=== PATIENT | female | born 1965 | race Caucasian/White ===

== ENCOUNTER 2017-09-20 11:03 | Inpatient (IN) | payer OTHER ==
[~2017-09-20] VITALS: Ht 170.2 cm; Wt 70.3 kg
[~2017-09-20 11:03] MED LIST: CIPRO500 MG PO; CODE1TAB37 PO; FLAGYL500MG PO; FLOVENT HFA10.6 GM; NEXIUM5 MG; PERCOCET 5-3251 EACH PO; PROVENT NS; Pepcid 40MG TAB PO; QVAR7.3 G1 IH; SINGULAIR10 MG PO; ZANTAC150 M3 PO; ZANTAC300 MG PO; [UNRECOGNIZED DRUG - OTHER] PO
== END 2017-09-27 18:01 | disposition home or self-care (01) | DRG 391 ==
LOC: ER 11:03 → MEDJ 22:18
PROC: BW25YZZ Computerized Tomography (CT Scan) of Chest, Abdomen and Pelvis using Other Contrast (ICD-10-PCS; 2017-09-20)
PROC: 3E0F7GC Introduction of Other Therapeutic Substance into Respiratory Tract, Via Natural or Artificial Opening (ICD-10-PCS; principal; 2017-09-21)
PROC: 3E0336Z Introduction of Nutritional Substance into Peripheral Vein, Percutaneous Approach (ICD-10-PCS; 2017-09-22)
PROC: BW24YZZ Computerized Tomography (CT Scan) of Chest and Abdomen using Other Contrast (ICD-10-PCS; 2017-09-24)
DX: K57.20 Diverticulitis of large intestine with perforation and abscess without bleeding (principal); A41.9 Sepsis, unspecified organism; J45.998 Other asthma; M32.8 Other forms of systemic lupus erythematosus

== ENCOUNTER 2017-11-19 06:11 | Day surgery (SDC) | payer OTHER | END 2017-11-19 09:22 | disposition home or self-care (01) | LOC: AMB-ENDOS 06:11 | DX: K57.30 Diverticulosis of large intestine without perforation or abscess without bleeding (principal) ==

== ENCOUNTER 2017-12-07 09:30 | Inpatient (IN) | payer OTHER ==
[~2017-12-07] VITALS: Ht 170.2 cm; Wt 70.3 kg
[2017-12-07] MEDS ORDERED: PROTONIX40 M1 PO (11:10)
[2017-12-07] MEDS ORDERED: PRO PO (11:11)
[2017-12-14] MEDS ORDERED: PROTONIX40 MG PO (08:57)
[2017-12-14] MEDS ORDERED: INTESTINEX680 M1 PO (08:57)
[2017-12-14] MEDS ORDERED: TYLENOL ARTHRI650 MG PO (08:57)
== END 2017-12-14 10:43 | disposition home or self-care (01) | DRG 330 ==
LOC: SURH 12-11 06:10 → O/R 12-11 06:10 → SURH 12-11 09:30
PROVIDERS: Surgery
PROC: 0DTE4ZZ Resection of Large Intestine, Percutaneous Endoscopic Approach (ICD-10-PCS; principal; 2017-12-11 14:15)
DX: K57.20 Diverticulitis of large intestine with perforation and abscess without bleeding (principal)

== ENCOUNTER 2019-02-03 05:45 | Day surgery (SDC) | payer OTHER ==
[~2019-02-03 05:45] MED LIST changes: +INTESTINEX680 M1 PO; +PRO PO; +PROTONIX40 M1 PO; +PROTONIX40 MG PO; +TYLENOL ARTHRI650 MG PO
== END 2019-02-03 09:20 | disposition home health service (06) ==
LOC: AMB-ENDOS 05:45
DX: K57.32 Diverticulitis of large intestine without perforation or abscess without bleeding (principal); K57.30 Diverticulosis of large intestine without perforation or abscess without bleeding

== ENCOUNTER 2021-06-30 18:51 | Emergency (ER) | payer OTHER ==
[~2021-06-30] VITALS: Ht 170.2 cm; Wt 72.6 kg
[2021-06-30] MEDS ORDERED: LYRICA50 MG (19:01)
[2021-06-30] MEDS ORDERED: NEXIUM2.5 MG (19:01)
== END 2021-07-01 00:09 | disposition home or self-care (01) ==
LOC: ER 18:51
DX: R10.32 Left lower quadrant pain (principal); K44.9 Diaphragmatic hernia without obstruction or gangrene; N20.0 Calculus of kidney